=== PATIENT | male | born 1980 | race Two or more races ===

== ENCOUNTER 2019-10-01 15:23 | Emergency (ER) | payer MEDICAID ==
[~2019-10-01] VITALS: Ht 162.6 cm; Wt 72.6 kg
[2019-10-01] MEDS ORDERED: TDAP DIPH,PERTUSS,TET VAC/PF 0.5 ML DISP.SYRIN IM ONE ×2 (15:42→15:45)
[2019-10-01] MEDS ORDERED: HYDROCODONE/APAP 5-325MG TABLET ONE (15:42)
[2019-10-01] MEDS ORDERED: HYDROCODONE/APAP 5-325MG TABLET PO ONE (15:45)
--- NOTE | 2019-10-01 16:22 | NUR ---
at bedside suturing laceration assisted by rn. Galloway
[2019-10-01] MEDS ORDERED: MORPHINE SULFATE 4 MG/1 ML DISP.SYRIN IM ONE (17:00)
[2019-10-01] MEDS ORDERED: ONDANSETRON 4 MG/2 ML VIAL IM ONE (17:00)
[2019-10-01] MEDS ORDERED: MORPHINE SULFATE 4 MG/1 ML DISP.SYRIN ONE (17:05)
[2019-10-01] MEDS ORDERED: ONDANSETRON 4 MG/2 ML VIAL ONE ×2 (17:05→17:06)
--- NOTE | 2019-10-01 17:08 | NUR ---
Dr Grubbs spoke to Dr Montez facial surgeon) for consult.
--- NOTE | 2019-10-01 17:15 | NUR ---
Patient taken down to CT.
--- NOTE | 2019-10-01 17:23 | NUR ---
Patient back from CT.
[2019-10-01] MEDS ORDERED: NEOMY/BACITRA/POLYMYXIN B OINT UD PACKET TP ONE ×2 (18:00→18:02)
--- NOTE | 2019-10-01 18:07 | NUR ---
dcd instructions and prescriptions given to pt. who verbalized undertanding. pt. left room ambulatory [id number]. no c/of pain triple ointment applied as ordered to laceration stitches in place.
== END 2019-10-01 18:09 | disposition home or self-care (01) ==
LOC: ER 15:26
DX: S01.81XA Laceration without foreign body of other part of head, initial encounter (principal); W29.8XXA Contact with other powered hand tools and household machinery, initial encounter; Y92.89 Other specified places as the place of occurrence of the external cause; R51 Headache
CPT/HCPCS: 12013; 70450; 90471; 90715; 96372; 99284; J2270; J2405; A4217; A4663

== ENCOUNTER 2019-10-22 08:22 | Emergency (ER) | payer MEDICAID ==
[~2019-10-22] VITALS: Ht 165.1 cm; Wt 74.8 kg
--- NOTE | 2019-10-22 08:30 | NUR ---
Patient discharged to home in stable condition. Written and verbal after care instructions given. Patient verbalizes understanding of instructions. Stressed follow up or return to ER for worsening s/s.pt walks in steady gait.
[2019-10-22] MEDS ORDERED: KETOROLAC TROMETHAMINE 30 MG INJ ONE (08:38)
[2019-10-22] MEDS ORDERED: KETOROLAC TROMETHAMINE 30 MG INJ IM ONE (08:45)
== END 2019-10-22 08:30 | disposition home or self-care (01) ==
LOC: ER 08:22
DX: G44.309 Post-traumatic headache, unspecified, not intractable (principal); S01.81XD Laceration without foreign body of other part of head, subsequent encounter; W29.8XXD Contact with other powered hand tools and household machinery, subsequent encounter; F17.210 Nicotine dependence, cigarettes, uncomplicated
CPT/HCPCS: 96372; 99283; 99406; J1885; A4663